=== PATIENT | female | born 1985 | race Caucasian/White ===

== ENCOUNTER → 2024-05-19 | Outpatient (CLI) | payer BC, SELFPAY ==
--- NOTE | 2024-05-19 08:00 | XR_ITS ---
Examination: MRI lumbar spine without contrast Date and time of exam: May 19, 2024 0812 hours INDICATIONS: Low back pain radiating down the left leg numbness in the left leg beginning 2 years ago post injury TECHNIQUE: Multiple MRI axial sagittal lumbar spine images FINDINGS: There is grade 1 spondylolisthesis L5 on S1 Disc desiccation L5-S1 No lumbar fracture L5-S1 3 mm central lumbar disc bulge 10 mm left foraminal disc bulge producing severe left L5 ganglionic compression L4-L5 no disc protrusion L3-L4 no disc protrusion L2-L3 no disc protrusion L1-L2 no disc protrusion Impression: L5-S1 3 mm central 10 mm left foraminal disc bulge producing severe left L5 ganglionic compression
== END | disposition home or self-care (01) ==
PROVIDERS: PCP Physician Assistant; Referring Provider Physician Assistant; Visit Provider Physician Assistant
DX: M51.379 Other intervertebral disc degeneration, lumbosacral region without mention of lumbar back pain or lower extremity pain (principal); G95.20 Unspecified cord compression
CPT/HCPCS: 72148